=== PATIENT | female | born 1985 | race Caucasian/White ===

== ENCOUNTER 2018-08-14 01:59 | Emergency (ER) | payer SELFPAY ==
[~2018-08-14] VITALS: Wt 57.6 kg
[2018-08-14] MEDS ORDERED: KETOROLAC 30 MG INJ IV STA (03:29)
[2018-08-14] MEDS ORDERED: PROCHLORPERAZINE 10 MG INJ IV STA (03:29)
[2018-08-14] MEDS ORDERED: SOD CHLORIDE 0.9% 1,000 ML IV STA (03:29)
[2018-08-14] MEDS ORDERED: ONDANSETRON 4 MG INJ IV STA (03:29)
[2018-08-14] MEDS ORDERED: HYDROmorphONE 0.5 MG/0.5 ML SYG IV STA (03:29)
[2018-08-14] MEDS ORDERED: HYDR-4011 PO (05:16)
[2018-08-14 05:27] VITALS: BP 117/56; PULSE 86; RESP 17
--- NOTE | 2018-08-14 05:35 | ERD ---
ER Documentation Chief Complaint Chief Complaint left sided headache since 8 pm. no neuro deficit. also c/o left toothache HPI This is a 32-year-old female with history of migraine headaches who presents the ED complaining of gradually worsening left-sided pounding headache since 8 PM today. She is also complaining of left lower teeth pain, which could be exacerbating her headache. She states she has had one episode of nonbilious, nonbloody emesis. She denies any numbness, tingling or focal weakness. Denies any trauma. Denies any neck stiffness. Denies any fevers or chills. No facial swelling. No other complaints. ROS All systems reviewed and are negative except as per history of present illness. Medications Home Meds Active Scripts Hydrocodone/Acetaminophen ([place] 5-325 Tablet) 1 Each Tablet, 1 TAB PO Q6H PRN for PAIN, #7 TAB Prov:ALBINA BURGOS PA-C 08/14/18 Allergies Allergies: Coded Allergies: No Known Drug Allergies (Verified Allergy, Unknown, 08/14/18) PMhx/Soc Medical and Surgical Hx: pt denies Medical Hx, pt denies Surgical Hx Hx Alcohol Use: No Hx Substance Use: No Hx Tobacco Use: No Smoking Status: Never smoker Physical Exam Vitals Vital Signs Date Temp Pulse Resp B/P (MAP) Pulse Ox O2 O2 Flow FiO2 Time Delivery Rate 08/14/18 99.0 110 20 137/97 97 02:04 (110) Physical Exam Const: + Crying, tearful. In Moderate distress secondary to pain Head: Atraumatic Eyes: Normal Conjunctiva. EOMI. PERRL. ENT: Normal External Ears, Nose and Mouth. + Fractured tooth #18 with tenderness to percussion. Submanibular space clear. Neck: Full range of motion. No meningismus. No LAD. Resp: Clear to auscultation bilaterally Cardio: Regular rate and rhythm, no murmurs Neuro: M/S: Alert and oriented Face: EOMI, face and pharynx with normal sensation and function Motor: Normal strength throughout Sensation: Normal sensation throughout Speech: Normal Cerebel: Normal coordination Normal gait Psych: Normal Mood and Affect Results 24 hrs Laboratory Tests Test 08/14/18 03:47 POC Beta HCG, Qualitative NEGATIVE Current Medications Medications Dose Sig/Sam Start Time Status Last (Trade) Ordered Route PRN Stop Time Admin Dose Reason Admin Sodium 1,000 ml @ Q1H STAT 08/14/18 DC 08/14/18 Chloride 1,000 mls/hr IV 03:29 04:06 08/14/18 04:28 10 mg ONCE STAT 08/14/18 DC 08/14/18 Prochlorperaz IV 03:29 04:00 ine 08/14/18 03:32 (Compazine Inj) Ondansetron 4 mg ONCE STAT 08/14/18 DC 08/14/18 HCl (Zofran IV 03:29 04:00 Inj) 08/14/18 03:32 Ketorolac 30 mg ONCE STAT 08/14/18 DC 08/14/18 Tromethamine IV 03:29 04:01 (Toradol) 08/14/18 03:32 0.5 mg ONCE STAT 08/14/18 DC 08/14/18 Hydromorphone IV 03:29 04:01 HCl 08/14/18 03:32 (Dilaudid) Procedures/MDM ED COURSE: The patient was given IVFs, Zofran, Toradol, Compazine, Diluadid The medication was well tolerated and the patient had market improvement in symptoms. The patient remained stable throughout ED course. MEDICAL DECISION MAKING: This is a 32-year-old female presents with a toothache and a headache. She has no fever here. Vital signs are stable. She has evidence of a fractured tooth on her left lower molar. There is no evidence of Asher's angina or deep space tissue infection. Her fractured tooth could be exacerbating her migraine headache. Her vital signs are stable. She has no focal neurological deficits on physical exam. Clinical presentation not consistent with subarachnoid hemorrhage, epidural or subdural hematoma, IC mass, CVA, encephalitis or meningitis. Her symptoms improved status post IVFs, Zofran, Diluadid, Compazine and Toradol. Patient was discharge home with close follow up and management by PCP in 48 hours. Strict return precautions discussed. PRESCRIPTIONS: [place] SPECIALIST FOLLOW UP RECOMMENDED: None Patient has been advised to follow up with primary care in 1-2 days. Departure Diagnosis: Primary Impression: Headache Headache type: unspecified Headache chronicity pattern: unspecified pattern Intractability: not intractable Qualified Codes: R51 - Headache Additional Impression: Fracture, tooth Encounter type: initial encounter Fracture type: closed Qualified Codes: S02.5XXA - Fracture of tooth (traumatic), initial encounter for closed fracture Condition: Stable Patient Instructions: Self-Care for Headaches, Dental Pain Referrals: [facility] ([facility] walk in clinic) Additional Instructions: you must be seen by the dentist sometime this week for your tooth pain. He can take the medication prescribing you for any pain. Return here for any fevers, cheek swelling, facial swelling or any other complaints. ALBINA BURGOS PA-C August 14, 2018 05:33
== END 2018-08-14 05:27 | disposition home or self-care (01) ==
LOC: FTE 01:59
DX: S02.5XXA Fracture of tooth (traumatic), initial encounter for closed fracture (principal); R11.10 Vomiting, unspecified; X58.XXXA Exposure to other specified factors, initial encounter; Y92.9 Unspecified place or not applicable
CPT/HCPCS: 81025; 96374; 96375; 99284; J0780; J1170; J1885; J2405; J7030